=== PATIENT | male | born 1965 | race Caucasian/White ===

== ENCOUNTER → 2017-02-19 | Outpatient (CLI) | payer OTHER ==
[2017-02-19 08:29] LABS: CHLORIDE,CL 103 mmol/L (98-110); SODIUM,NA 136 mmol/L (136-146)
== END ==
LOC: MW.CHFP 07:25
PROVIDERS: ATTEND Nurse Practitioner Family
DX: E11.9 Type 2 diabetes mellitus without complications (principal)
CPT/HCPCS: 36415; 80053; 80061; 82044; 83036

== ENCOUNTER 2017-08-13 06:05 | Emergency (ER) | payer OTHER ==
[2017-08-13] MEDS ORDERED: Sodium Chloride 0.9% 2.5 ML Syringe FLUSH PRN (08:19)
[2017-08-13] MEDS ORDERED: Sodium Chloride 0.9% 10 ML Syringe FLUSH PRN (08:19)
[2017-08-13] MEDS ORDERED: Sodium Chloride 0.9% 1,000 ML IV ONE (08:21)
--- NOTE | 2017-08-13 08:21 | EDM.PDOC ---
<Griffin Rodriguez Z - Last Filed: 08/13/17 10:28> ED HPI GENERAL MEDICAL PROBLEM - General Chief Complaint: Skin Complaint Stated Complaint: RIGHT FOOT SWOLLEN Time Seen by Provider: 08/13/17 07:40 Source of Information: Reports: Patient History Limitations: Reports: No Limitations - History of Present Illness INITIAL COMMENTS - FREE TEXT/NARRATIVE: HISTORY AND PHYSICAL: History of present illness: 52-year-old type II diabetic on multiple diabetic medications including insulin presenting with a 6 month history of right foot swelling. Patient was assessed by his primary care for evaluation 6 months ago which he did not get properly evaluated at that time due to work. He now presents with right-sided foot pain and swelling for the past 3 days, pain is on the plantar aspect of his foot. Patient states that he did notice pus/blood that came out on the lateral aspect of his foot. Patient denies any history of osteomyelitis, Charcot foot, or any other foot abnormalities. Patient denies any fevers, chills, nausea, vomiting, diarrhea or constipation. No other systemic findings appreciated at the moment. Review of systems: As per history of present illness and below otherwise all systems reviewed and negative. Past medical history: As per history of present illness and as reviewed below otherwise noncontributory. Surgical history: As per history of present illness and as reviewed below otherwise noncontributory. Social history: No reported history of drug or alcohol abuse. Family history: As per history of present illness and as reviewed below otherwise noncontributory. Physical exam: HEENT: Atraumatic, normocephalic, pupils reactive, negative for conjunctival pallor or scleral icterus, mucous membranes moist, throat clear, neck supple, nontender, trachea midline. Lungs: Clear to auscultation, breath sounds equal bilaterally, chest nontender. Heart: S1S2, regular, negative for clicks, rubs, or JVD. Abdomen: Soft, nondistended, nontender. Negative for masses or hepatosplenomegaly. Negative for costovertebral tenderness. Pelvis: Stable nontender. Genitourinary: Deferred. Rectal: Deferred. Extremities: Right foot swelling, no erythema on the anterior aspect of foot. Small abrasion on anterior aspect of the foot, mid plantar aspect to 2-3 cm abscess formation. Tenderness on palpation of plantar aspect. No abnormalities appreciated on left foot aside from fungal nail bed disease. Neuro: Awake, alert, oriented. Cranial nerves II through XII grossly unremarkable. Cerebellum unremarkable. Motor and sensory unremarkable throughout. Exam nonfocal. Diagnostics: [CBC with differential within normal limits, CMP within normal limits with a mild elevation of BUN of 25 2 View x-ray of right foot showing destructive changes mid foot indicating Charcot foot with possible osteomyelitic changes] Therapeutics: IV Vancomycin 1 Gram, Normal Saline 1 L Impression: 52 year old diabetic male presenting with 6 month history of right foot swelling , pain, abcess formation with imaging indicating mid foot charcote foot and possible osteomyelitis. Plan: After discussing with General surgery and Orthopedics in our instutation it was determined that patients condition is beyond the capbalties of our insutation, as Definitive disposition and diagnosis as appropriate pending reevaluation and review of above. Right Foot Pain Score (Numeric/FACES): 5 - Related Data Allergies Allergy/AdvReac Type Severity Reaction Status Date / Time codeine Allergy Diarrhea Verified 08/13/17 06:29 meperidine HCl [From Demerol] Allergy Diarrhea Verified 08/13/17 06:29 Home Meds: Home Meds Insulin Glargine,Hum.Rec.Anlog [Lantus Solostar] 100 unit SQ DAILY 06/17/14 [ History] Lisinopril 5 mg PO DAILY 06/17/14 [History] Dapagliflozin Propanediol [Farxiga] 10 mg PO DAILY 12/16/15 [History] Hydrochlorothiazide/Lisinopril [Lisinopril/HCTZ 20-12.5 MG] 1 tab PO DAILY 12/16 [History] Insulin Glarg,Human.Rec.Analog [LantUS Solostar] 30 units SUBCUT BID 12/16/15 [ History] Saxagliptin HCl/Metformin HCl [Kombiglyze XR 5-1,000 MG] 1 tab PO DAILY [History] Tamsulosin HCl [Flomax] 0.4 mg PO DAILY 12/16/15 [History] atorvaSTATin Calcium [Atorvastatin Calcium] 10 mg PO DAILY 12/16/15 [History] glipiZIDE [Glucotrol XL] 10 mg PO BID 12/16/15 [History] Past Medical History Cardiovascular History: Reports: High Cholesterol, Hypertension Respiratory History: Reports: None Gastrointestinal History: Reports: None Genitourinary History: Reports: BPH, Diabetic Nephropathy, Renal Calculus Musculoskeletal History: Reports: Arthritis, Fracture Neurological History: Reports: None Psychiatric History: Reports: None Endocrine/Metabolic History: Reports: Diabetes, Type II, Obesity/BMI 30+ Hematologic History: Reports: None Immunologic History: Reports: None Oncologic (Cancer) History: Reports: None Dermatologic History: Reports: None - Past Surgical History Head Surgeries/Procedures: Reports: None HEENT Surgical History: Reports: Tonsillectomy Cardiovascular Surgical History: Reports: None Social & Family History - Family History Family Medical History: Noncontributory - Tobacco Use Smoking Status *Q: Former Smoker Used Tobacco, but Quit: Yes Second Hand Smoke Exposure: No - Alcohol Use Days Per Week of Alcohol Use: 0 - Recreational Drug Use Recreational Drug Use: No Drug Use in Last 12 Months: No ED ROS GENERAL - Review of Systems Review Of Systems: ROS reveals no pertinent complaints other than HPI. ED EXAM, SKIN/RASH Exam: See Below (see HPI) Course - Vital Signs Last Recorded V/S: Last Vital Signs Temp 37.1 C 08/13/17 06:33 Pulse 72 08/13/17 08:39 Resp 16 08/13/17 08:39 BP 132/67 08/13/17 08:39 Pulse Ox 97 08/13/17 08:39 - Orders/Labs/Meds Orders: Active Orders 24 hr Category Date Time Status Peripheral IV Insertion Adult [OM.PC] Stat Oth 08/13/17 08:19 Ordered Labs: Laboratory Tests 08/13/17 08/13/17 Range/Units 08:30 08:30 WBC 9.65 (4.0-11.0) K/uL RBC 4.51 (4.50-5.90) M/uL Hgb 13.9 (13.0-17.0) g/dL Hct 40.9 (38.0-50.0) % MCV 90.7 (80.0-98.0) fL MCH 30.8 (27.0-32.0) pg MCHC 34.0 (31.0-37.0) g/dL RDW Std Deviation 42.6 (28.0-62.0) fl RDW Coeff of Bessie 13 (11.0-15.0) % Plt Count 239 (150-400) K/uL MPV 9.70 (7.40-12.00) fL Neut % (Auto) 75.2 (48.0-80.0) % Lymph % (Auto) 13.8 L (16.0-40.0) % [place] % (Auto) 7.9 (0.0-15.0) % Eos % (Auto) 2.8 (0.0-7.0) % Baso % (Auto) 0.3 (0.0-1.5) % Neut # (Auto) 7.3 H (1.4-5.7) K/uL Lymph # (Auto) 1.3 (0.6-2.4) K/uL [place] # (Auto) 0.8 (0.0-0.8) K/uL Eos # (Auto) 0.3 (0.0-0.7) K/uL Baso # (Auto) 0.0 (0.0-0.1) K/uL Nucleated RBC % 0.0 /100WBC Nucleated RBCs # 0 K/uL Sodium 135 L (136-146) mmol/L Potassium 4.6 (3.5-5.1) mmol/L Chloride 104 (98-110) mmol/L Carbon Dioxide 21 (21-31) mmol/L BUN 25 H (6.0-23.0) mg/dL Creatinine 0.9 (0.6-1.5) mg/dL Est Cr Clr Drug Dosing 101.93 mL/min Estimated GFR (MDRD) > 60.0 ml/min Glucose 129 H (60-110) mg/dL Calcium 9.6 (8.8-10.8) mg/dL Meds: Medications Discontinued Medications Generic Name Dose Route Start Last Admin Trade Name Freq PRN Reason Stop Dose Admin Sodium Chloride 1,000 mls @ 999 mls/hr 08/13/17 08:21 08/13/17 08:37 Normal Saline IV 08/13/17 09:21 999 mls/hr STAT ONE Administration Vancomycin HCl 1 gm/ Sodium 250 mls @ 250 mls/hr 08/13/17 08:28 08/13/17 08: 38 Chloride IV 08/13/17 09:27 250 mls/hr ONETIME ONE Administration Sodium Chloride 10 ml 08/13/17 08:19 08/13/17 08:38 Saline Flush FLUSH 10 ml ASDIRECTED PRN Administration Keep Vein Open Sodium Chloride 2.5 ml 08/13/17 08:19 08/13/17 08:38 Saline Flush FLUSH 2.5 ml ASDIRECTED PRN Administration Keep Vein Open Departure - Departure Disposition: DC/Tfer to [facility] 02 Clinical Impression: Abscess of right foot, Charcot's joint of right foot - Discharge Information Referrals: Yahaira August, [facility] DRIVER [Primary Care Provider] - Forms: ED Department Discharge <Robson Roberson - Last Filed: 08/13/17 10:40> ED HPI GENERAL MEDICAL PROBLEM - History of Present Illness INITIAL COMMENTS - FREE TEXT/NARRATIVE: KARRIE Castro attending note Dr. Robson Roberson Signs and symptoms consistent with abscess in the plantar aspect of patient's right foot with significant midfoot swelling and tenderness. No erythema or warmth the plantar aspect is fluctuant without crepitus. No crepitus to dorsum ankle or leg. No erythema or warmth to the top of foot ankle or leg as well. Patient with no evidence of systemic inflammatory response syndrome or sepsis. It appears he has some infection of unknown chronicity superimposed on his Charcot foot diagnosis today by x-ray. Possibility of osteomyelitis does exist however patient is not systemically ill. Case discussed with surgery precision inspector Dr. Alejandra schneider as well as orthopedics precision inspector Dr. Aniyah Enamorado both of whom feel this case is beyond the scope of their practice for management here and recommend transfer. Case discussed with Dr. Becerra at [facility] in [place]. Dr. Becerra agrees blood cultures are not clinically indicated at this time as patient does not have Sirs or sepsis. He is aware of the history and findings and accepts patient in transfer for inpatient care IV antibiotics surgical treatment and continued management as needed. Impression: Abscess right foot plantar aspect Right Charcot foot Possible osteomyelitis right foot ED ROS GENERAL - Review of Systems Review Of Systems: See Below (Per history of present illness) ED EXAM, SKIN/RASH Exam: See Below (Per history of present illness) Departure - Departure Time of Disposition: 10:33 Condition: Fair
[2017-08-13 09:08] LABS: CHLORIDE,CL 104 mmol/L (98-110); SODIUM,NA 135 mmol/L (136-146)
--- NOTE | 2017-08-13 09:27 | CR ---
EXAMINATION: Right foot HISTORY: Rule out osteomyelitis COMPARISON: None TECHNIQUE: 2 views FINDINGS: Destructive changes are noted within the mid foot consistent with Charcot changes. There is likely a chronic Lisfranc deformity. The cortical margins along the distal cuboid and the navicular and cuneiforms are noted. No acute appearing fracture is noted. There is resulting pes planus. Modera te plantar and Achilles calcaneal spurs noted. Soft tissue swelling is noted along the mid volar aspe ct of the foot. IMPRESSION: 1. Destructive changes within the midfoot most likely representing Charcot changes. Osteomyelitis can not be excluded. 2. 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 3. Soft tissue swelling.
[2017-08-13 10:54] VITALS: BP 137/66
== END 2017-08-13 10:50 ==
LOC: MW.ED 06:05
DX: L02.611 Cutaneous abscess of right foot (principal); E11.610 Type 2 diabetes mellitus with diabetic neuropathic arthropathy; E66.9 Obesity, unspecified; Z88.5 Allergy status to narcotic agent; Z88.8 Allergy status to other drugs, medicaments and biological substances; Z79.4 Long term (current) use of insulin; Z79.899 Other long term (current) drug therapy; Z87.442 Personal history of urinary calculi; Z87.891 Personal history of nicotine dependence; Z68.37 Body mass index [BMI] 37.0-37.9, adult
CPT/HCPCS: 36415; 73620; 80048; 85025; 96361; 96365; 96366; 99285; J3370; J7040; J7050; 99283

== ENCOUNTER 2019-07-21 05:32 | Emergency (ER) | payer OTHER ==
[2019-07-21] MEDS ORDERED: methylPREDNISolone Sodium Succinate 125 MG/2 ML SDV IVPUSH ONE (05:54)
[2019-07-21] MEDS ORDERED: Albuterol/Ipratropium 3.0-0.5 MG/3 ML Neb Soln NEB ONE (05:54)
--- NOTE | 2019-07-21 05:55 | EDM.PDOC ---
ED HPI GENERAL MEDICAL PROBLEM - General Chief Complaint: Respiratory Problem Stated Complaint: CHEST PAIN, COUGH Time Seen by Provider: 07/21/19 05:55 Source of Information: Reports: Patient - History of Present Illness INITIAL COMMENTS - FREE TEXT/NARRATIVE: HISTORY AND PHYSICAL: History of present illness: [Patient presents with cough and burning chest pain with cough, he has been sleeping on his right side which has been causing pain I can reproduce pain with movement of his right arm is certainly congested from a sinus standpoint on exam and has not coughed lungs are clear no fever nausea vomiting chills sweats no chest pain shortness breath headache dizziness palpitation no bowel or urine symptoms no associated shortness of breath or diaphoresis no radiation to left arm neck or jaw] Review of systems: As per history of present illness and below otherwise all systems reviewed and negative. Past medical history: As per history of present illness and as reviewed below otherwise noncontributory. Surgical history: As per history of present illness and as reviewed below otherwise noncontributory. Social history: No reported history of drug or alcohol abuse. Family history: As per history of present illness and as reviewed below otherwise noncontributory. Physical exam: HEENT: Atraumatic, normocephalic, pupils reactive, negative for conjunctival pallor or scleral icterus, mucous membranes moist, throat clear, neck supple, nontender, trachea midline. Lungs: Clear to auscultation, breath sounds equal bilaterally, chest nontender on the left, can reproduce chest tenderness on the right clear muscle spasm noted pectoralis major. Heart: S1S2, regular, negative for clicks, rubs, or JVD. Abdomen: Soft, nondistended, nontender. Negative for masses or hepatosplenomegaly. Negative for costovertebral tenderness. Pelvis: Stable nontender. Genitourinary: Deferred. Rectal: Deferred. Extremities: Atraumatic, negative for cords or calf pain. Neurovascular unremarkable. Neuro: Awake, alert, oriented. Cranial nerves II through XII unremarkable. Cerebellum unremarkable. Motor and sensory unremarkable throughout. Exam nonfocal. Patient does have decreased image scientist strength on the right but he has noted over the last 24-48 hours Diagnostics: [CBC CMP UA troponin INR EKG Chest [address] no contrast ] Therapeutics:Normal saline DuoNeb Levaquin The counter symptomatic therapies discussed ] Patient offered observation admission however refused he prefers to follow-up outpatient for the right hand weakness, probably urged to return if symptoms persist or worsen or new concerning symptoms develop Impression: [ sinusitis Bronchitis un equal image scientist strength -remote history of right hand injury Chronic history of baseline] Definitive disposition and diagnosis as appropriate pending reevaluation and review of above. Chest Pain Score (Numeric/FACES): 5 - Related Data Allergies Allergy/AdvReac Type Severity Reaction Status Date / Time codeine Allergy Diarrhea Verified 07/21/19 05:36 meperidine HCl [From Demerol] Allergy Diarrhea Verified 07/21/19 05:36 Home Meds: Home Meds Lisinopril 5 mg PO DAILY 06/17/14 [History] Dapagliflozin Propanediol [Farxiga] 10 mg PO DAILY 12/16/15 [History] Insulin Glarg,Human.Rec.Analog [LantUS Solostar] 60 units SUBCUT BID 12/16/15 [ History] Tamsulosin HCl [Flomax] 0.4 mg PO DAILY 12/16/15 [History] atorvaSTATin Calcium [Atorvastatin Calcium] 10 mg PO DAILY 12/16/15 [History] glipiZIDE [Glucotrol XL] 10 mg PO BID 12/16/15 [History] Saxagliptin HCl/Metformin HCl [Kombiglyze XR 5-1,000 MG] 1 each PO DAILY [History] Past Medical History HEENT History: Reports: None Cardiovascular History: Reports: High Cholesterol, Hypertension Respiratory History: Reports: None Gastrointestinal History: Reports: None Genitourinary History: Reports: BPH, Diabetic Nephropathy, Renal Calculus Musculoskeletal History: Reports: Arthritis, Fracture Neurological History: Reports: None Psychiatric History: Reports: None Endocrine/Metabolic History: Reports: Diabetes, Type II, Obesity/BMI 30+ Hematologic History: Reports: None Immunologic History: Reports: None Oncologic (Cancer) History: Reports: None Dermatologic History: Reports: None - Past Surgical History Head Surgeries/Procedures: Reports: None HEENT Surgical History: Reports: Tonsillectomy Cardiovascular Surgical History: Reports: None Social & Family History - Family History Family Medical History: Noncontributory - Tobacco Use Smoking Status *Q: Never Smoker - Caffeine Use Caffeine Use: Reports: Coffee - Recreational Drug Use Recreational Drug Use: No ED ROS GENERAL - Review of Systems Review Of Systems: See Below ED EXAM, GENERAL - Physical Exam Exam: See Below Course - Vital Signs Last Recorded V/S: Last Vital Signs Temp 96.5 F 07/21/19 05:36 Pulse 82 07/21/19 05:36 Resp 20 07/21/19 05:36 BP 125/77 07/21/19 05:36 Pulse Ox 95 07/21/19 05:36 - Orders/Labs/Meds Orders: Active Orders 24 hr Category Date Time Status EKG Documentation Completion [RC] STAT Care 07/21/19 05:54 Active RT Aerosol Therapy [RC] ASDIRECTED Care 07/21/19 05:54 Active Sodium Chloride 0.9% [Normal Saline] 1,000 ml Med 07/21/19 06:00 Active IV STAT Medication Orders Sodium Chloride (Normal Saline) 1,000 mls @ 125 mls/hr IV STAT RAHEEM Last Admin: 07/21/19 06:01 Dose: 125 mls/hr Labs: Laboratory Tests 07/21/19 07/21/19 07/21/19 Range/Units 05:50 05:50 05:50 WBC 8.97 (4.0-11.0) K/uL RBC 4.71 (4.50-5.90) M/uL Hgb 14.7 (13.0-17.0) g/dL Hct 42.9 (38.0-50.0) % MCV 91.1 (80.0-98.0) fL MCH 31.2 (27.0-32.0) pg MCHC 34.3 (31.0-37.0) g/dL RDW Std Deviation 43.6 (28.0-62.0) fl RDW Coeff of Bessie 13 (11.0-15.0) % Plt Count 211 (150-400) K/uL MPV 9.90 (7.40-12.00) fL Neut % (Auto) 67.8 (48.0-80.0) % Lymph % (Auto) 15.6 L (16.0-40.0) % [place] % (Auto) 10.4 (0.0-15.0) % Eos % (Auto) 5.6 (0.0-7.0) % Baso % (Auto) 0.6 (0.0-1.5) % Neut # (Auto) 6.1 H (1.4-5.7) K/uL Lymph # (Auto) 1.4 (0.6-2.4) K/uL [place] # (Auto) 0.9 H (0.0-0.8) K/uL Eos # (Auto) 0.5 (0.0-0.7) K/uL Baso # (Auto) 0.1 (0.0-0.1) K/uL Nucleated RBC % 0.0 /100WBC Nucleated RBCs # 0 K/uL INR 0.96 Sodium 136 (136-148) mmol/L Potassium 4.5 (3.5-5.1) mmol/L Chloride 100 (98-107) mmol/L Carbon Dioxide 22.5 (21.0-32.0) mmol/L BUN 36 H (7.0-18.0) mg/dL Creatinine 1.1 (0.8-1.3) mg/dL Est Cr Clr Drug Dosing 55.32 mL/min Estimated GFR (MDRD) > 60.0 ml/min Glucose 156 H (74-106) mg/dL Calcium 9.2 (8.5-10.1) mg/dL Total Bilirubin 0.7 (0.2-1.0) mg/dL AST 22 (15-37) IU/L ALT 31 (14-63) IU/L Alkaline Phosphatase 68 (46-116) U/L Creatine Kinase 295 (26-308) U/L Troponin I < 0.050 (0.000-0.056) ng/mL Total Protein 7.1 (6.4-8.2) g/dL Albumin 4.0 (3.4-5.0) g/dL Globulin 3.1 (2.6-4.0) g/dL Albumin/Globulin Ratio 1.3 (0.9-1.6) Urine Color Urine Appearance Urine pH (5.0-8.0) Ur Specific [place] (1.001-1.035) Urine Protein (NEGATIVE) mg/dL Urine Glucose (UA) (NEGATIVE) mg/dL Urine Ketones (NEGATIVE) mg/dL Urine Occult Blood (NEGATIVE) Urine Nitrite (NEGATIVE) Urine Bilirubin (NEGATIVE) Urine Urobilinogen (<2.0) EU/dL Ur Leukocyte Esterase (NEGATIVE) 07/21/19 Range/Units 06:30 WBC (4.0-11.0) K/uL RBC (4.50-5.90) M/uL Hgb (13.0-17.0) g/dL Hct (38.0-50.0) % MCV (80.0-98.0) fL MCH (27.0-32.0) pg MCHC (31.0-37.0) g/dL RDW Std Deviation (28.0-62.0) fl RDW Coeff of Bessie (11.0-15.0) % Plt Count (150-400) K/uL MPV (7.40-12.00) fL Neut % (Auto) (48.0-80.0) % Lymph % (Auto) (16.0-40.0) % [place] % (Auto) (0.0-15.0) % Eos % (Auto) (0.0-7.0) % Baso % (Auto) (0.0-1.5) % Neut # (Auto) (1.4-5.7) K/uL Lymph # (Auto) (0.6-2.4) K/uL [place] # (Auto) (0.0-0.8) K/uL Eos # (Auto) (0.0-0.7) K/uL Baso # (Auto) (0.0-0.1) K/uL Nucleated RBC % /100WBC Nucleated RBCs # K/uL INR Sodium (136-148) mmol/L Potassium (3.5-5.1) mmol/L Chloride (98-107) mmol/L Carbon Dioxide (21.0-32.0) mmol/L BUN (7.0-18.0) mg/dL Creatinine (0.8-1.3) mg/dL Est Cr Clr Drug Dosing mL/min Estimated GFR (MDRD) ml/min Glucose (74-106) mg/dL Calcium (8.5-10.1) mg/dL Total Bilirubin (0.2-1.0) mg/dL AST (15-37) IU/L ALT (14-63) IU/L Alkaline Phosphatase (46-116) U/L Creatine Kinase (26-308) U/L Troponin I (0.000-0.056) ng/mL Total Protein (6.4-8.2) g/dL Albumin (3.4-5.0) g/dL Globulin (2.6-4.0) g/dL Albumin/Globulin Ratio (0.9-1.6) Urine Color YELLOW Urine Appearance CLEAR Urine pH 5.5 (5.0-8.0) Ur Specific [place] 1.020 (1.001-1.035) Urine Protein NEGATIVE (NEGATIVE) mg/dL Urine Glucose (UA) >=1000 (NEGATIVE) mg/dL Urine Ketones NEGATIVE (NEGATIVE) mg/dL Urine Occult Blood NEGATIVE (NEGATIVE) Urine Nitrite NEGATIVE (NEGATIVE) Urine Bilirubin NEGATIVE (NEGATIVE) Urine Urobilinogen 0.2 (<2.0) EU/dL Ur Leukocyte Esterase NEGATIVE (NEGATIVE) Meds: Medications Generic Name Dose Route Start Last Admin Trade Name Freq PRN Reason Stop Dose Admin Sodium Chloride 1,000 mls @ 125 mls/hr 07/21/19 06:00 07/21/19 06:01 Normal Saline IV 125 mls/hr STAT RAHEEM Administration Discontinued Medications Generic Name Dose Route Start Last Admin Trade Name Freq PRN Reason Stop Dose Admin Albuterol/Ipratropium 3 ml 07/21/19 05:54 07/21/19 06:00 Duoneb 3.0-0.5 Mg/3 Ml NEB 07/21/19 05:55 3 ml ONETIME ONE Administration Methylprednisolone Sodium Succinate 125 mg 07/21/19 05:54 07/21/19 06:00 Solu-Medrol IVPUSH 07/21/19 05:55 125 mg ONETIME ONE Administration Departure - Departure Time of Disposition: 07:04 Disposition: Home, Self-Care 01 Condition: Good Clinical Impression: Sinusitis - Discharge Information Referrals: Fatimah Cornejo MD [Primary Care Provider] - Forms: ED Department Discharge Additional Instructions: The following information is given to patients seen in the emergency department who are being discharged to home. This information is to outline your options for follow-up care. We provide all patients seen in our emergency department with a follow-up referral. The need for follow-up, as well as the timing and circumstances, are variable depending upon the specifics of your emergency department visit. If you don't have a primary care physician on staff, we will provide you with a referral. We always advise you to contact your personal physician following an emergency department visit to inform them of the circumstance of the visit and for follow-up with them and/or the need for any referrals to a consulting specialist. The emergency department will also refer you to a specialist when appropriate. This referral assures that you have the opportunity for follow-up care with a specialist. All of these measure are taken in an effort to provide you with optimal care, which includes your follow-up. Under all circumstances we always encourage you to contact your private physician who remains a resource for coordinating your care. When calling for follow-up care, please make the office aware that this follow-up is from your recent emergency room visit. If for any reason you are refused follow-up, please contact the [facility] emergency department at and asked to speak to the emergency department charge nurse. - My Orders Last 24 Hours: My Active Orders 07/21/19 05:54 EKG Documentation Completion [RC] STAT RT Aerosol Therapy [RC] ASDIRECTED 07/21/19 06:00 Sodium Chloride 0.9% [Normal Saline] 1,000 ml IV STAT - Assessment/Plan Last 24 Hours: My Active Orders 07/21/19 05:54 EKG Documentation Completion [RC] STAT RT Aerosol Therapy [RC] ASDIRECTED 07/21/19 06:00 Sodium Chloride 0.9% [Normal Saline] 1,000 ml IV STAT
[2019-07-21] MEDS ORDERED: Sodium Chloride 0.9% 1,000 ML IV SCH (06:00)
[2019-07-21 06:27] LABS: BLOOD UREA NITROGEN,BUN 36 mg/dL (7.0-18.0); CARBON DIOXIDE,CO2 22.5 mmol/L (21.0-32.0); CHLORIDE,CL 100 mmol/L (98-107); GLUCOSE RANDOM 156 mg/dL (74-106); POTASSIUM,K 4.5 mmol/L (3.5-5.1); SODIUM,NA 136 mmol/L (136-148)
--- NOTE | 2019-07-21 06:42 | CT ---
INDICATION: Right arm numbness and chest pain TECHNIQUE: CT head without contrast. COMPARISON: None. FINDINGS: CSF spaces: Within normal limits for age. Brain parenchyma: The waller-white differentiation is normal. No sign of mass, hemorrhage, or midline shift. Skull base and calvarium: Patchy opacification and mucosal thickening paranasal sinuses. The visualized orbits are grossly unremarkable. No skull fractures. IMPRESSION: Tadeo sinus disease, otherwise unremarkable noncontrast head CT. Please note that all CT scans at this facility use dose modulation, iterative reconstruction, and/or weight-based dosing when appropriate to reduce radiation dose to as low as reasonably achievable. Dictated by Sixto Barahona MD @ Jul 21 2019 6:37AM Signed by Dr. Sixto Barahona @ Jul 21 2019 6:40AM
--- NOTE | 2019-07-21 06:42 | CR ---
INDICATION: Cough, chest pain and right arm numbness. TECHNIQUE: Chest 1 views COMPARISON: Chest x-ray 08/26/2009 FINDINGS: Cardiovascular and mediastinum: Heart size and vasculature are normal in caliber and appearance. Lungs and pleural spaces: Lungs are clear. No sign of infiltrate or mass. No sign of pleural effusion. No pneumothorax. Bones and soft tissues: No significant findings. IMPRESSION: Unremarkable single view chest. Dictated by Sixto Barahona MD @ Jul 21 2019 6:37AM Signed by Dr. Sixto Barahona @ Jul 21 2019 6:41AM
[2019-07-21 07:20] VITALS: BP 125/68
== END 2019-07-21 07:20 | disposition home or self-care (01) ==
LOC: MW.ED 05:32
DX: J32.9 Chronic sinusitis, unspecified (principal); J40 Bronchitis, not specified as acute or chronic; E78.00 Pure hypercholesterolemia, unspecified; E11.21 Type 2 diabetes mellitus with diabetic nephropathy; I10 Essential (primary) hypertension; E66.9 Obesity, unspecified; Z68.1 Body mass index [BMI] 19.9 or less, adult; Z98.890 Other specified postprocedural states; Z88.5 Allergy status to narcotic agent; Z79.4 Long term (current) use of insulin; Z79.899 Other long term (current) drug therapy
CPT/HCPCS: 36415; 70450; 71045; 80053; 81003; 82550; 84484; 85025; 85610; 93005; 94640; 96361; 96374; 99285; J2930; J7040; 99284; J7620-GY

== ENCOUNTER 2022-04-17 13:55 | Emergency (ER) | payer BC ==
[2022-04-17] MEDS ORDERED: Bacitracin Oint 1 GM U/D Packet TOP ONE (14:15)
[2022-04-17] MEDS ORDERED: Doxycycline 100 MG Cap PO ONE (14:16)
[2022-04-17] MEDS ORDERED: Acetaminophen/HYDROcodone 325-5 MG Tab PO ONE (15:52)
[2022-04-17 16:30] VITALS: BP 110/80; PULSE 76
== END 2022-04-17 16:29 | disposition home or self-care (01) ==
LOC: MW.ED 13:55
DX: S91.202A Unspecified open wound of left great toe with damage to nail, initial encounter (principal); E11.9 Type 2 diabetes mellitus without complications; E78.00 Pure hypercholesterolemia, unspecified; I10 Essential (primary) hypertension; E66.9 Obesity, unspecified; Z68.30 Body mass index [BMI] 30.0-30.9, adult; Z88.5 Allergy status to narcotic agent; Z88.8 Allergy status to other drugs, medicaments and biological substances; Z79.4 Long term (current) use of insulin; Z79.899 Other long term (current) drug therapy; W22.09XA Striking against other stationary object, initial encounter
CPT/HCPCS: 73660; 99283; A9270